=== PATIENT | female | born 1945 | race Caucasian/White ===

== ENCOUNTER 2021-05-30 13:23 | Emergency (ER) | payer MEDICARE, SELFPAY ==
[2021-05-30 13:43] VITALS: BP 144/64; PULSE 89; RESP 18; TEMP 36.9; O2SAT 99
--- NOTE | 2021-05-30 13:45 | ECG_ITS ---
Measurements Intervals [place] Rate: 90 P: 7 VT: 130 QRS: 20 QRSD: 85 T: 16 QT: 348 QTc: 427 Interpretive Statements SINUS RHYTHM BORDERLINE T WAVE ABNORMALITY- INFERIOR LEADS BASELINE ARTIFACT- II, III, AVR, AVL, AVF, V1-V2 BORDERLINE ECG Electronically Signed On 05-30-2021 14:45:09 CONTACT CENTER ANALYST by Hair Nguyen D.O.
--- NOTE | 2021-05-30 13:48 | ED.SOB ---
HPI - SOB/Dyspnea General Chief Complaint: Shortness of Breath/Dyspnea Stated Complaint: Short of Breath Time Seen by Provider: 05/30/21 13:45 Source: patient, RN notes reviewed and old records reviewed Mode of arrival: ambulatory Limitations: no limitations History of Present Illness HPI Narrative: 75 year old female who presents to express care with complaints of intermittent chest pain since last Sunday associated with shortness of breath with pain to chest increased with deep breathing. Patient reports that dyspnea increases with activity and when lying down. She reports that she has been taking nitro without resolution of chest pain but has not taken any today, Patient denies chest pain at present time but reports that her dyspnea seems to have increased today.Patient states history of CAD,angina, PE, CHF, irregular heart beat, pneumonia, COPD, hypertension, TIA,old CVA,asthma and COPD. Patient reports that she lives in [place] and is staying with her daughter at this time has not gotten in contact with her physician.Patient is on Plavix daily. MD elicited complaint: shortness of breath, pain with inspiration and chest pain Pertinent past history: COPD, asthma, congestive heart failure, pneumonia, PE and DVT Onset (ago): day(s) (5) Treatment prior to arrival: nitroglycerin Related Data Home oxygen amount: none Home Medications Medication Instructions Recorded Confirmed amlodipine 05/30/21 atorvastatin 05/30/21 baclofen mg 05/30/21 folic acid 05/30/21 lisinopril 05/30/21 nitroglycerin mg 05/30/21 ropinirole mg 05/30/21 sertraline mg 05/30/21 tramadol mg 05/30/21 trazodone 05/30/21 Allergies Allergy/AdvReac Type Severity Reaction Status Date / Time lorazepam [From Ativan] Allergy Severe Jittery Verified 05/30/21 14:47 Review of Systems Review of Systems: CONSTITUTIONAL: Denies fever, chills, or sweats. EYES: Denies visual changes, redness, or discharge. ENT: Denies rhinorrhea, congestion, sore throat, or otalgia. CARDIOVASCULAR: Positive for chest pain, no palpitations, or edema. RESPIRATORY: Denies cough Positive for dyspnea especially with activity and when lying down GASTROINTESTINAL: Denies abdominal pain, nausea, vomiting, or diarrhea. GENITOURINARY: Denies dysuria or hematuria. SKIN: Denies rash or itching. MUSCULOSKELETAL: Denies back pain, joint pain, or myalgia. NEUROLOGIC: Denies headache, numbness, or weakness. PSYCHIATRIC: Positive for history of anxiety or depression. All systems reviewed & are unremarkable except as noted in HPI and below PMFSH Past Medical History Medical History Afib Anxiety and depression Arthritis Asthma CAD (coronary artery disease) Congestive heart failure COPD (chronic obstructive pulmonary disease) DVT (deep venous thrombosis) Hypertension Lupus Pulmonary embolism Right-sided cerebrovascular accident (CVA) Sleep apnea TIA (transient ischemic attack) Surgical History Surgical History History of cholecystectomy History of hysterectomy History of left hip replacement S/P cervical spinal fusion Family History Family History (Updated 06/01/21 @ 11:11 by Dipti Kilpatrick NP) Sibling Lupus Diabetes mellitus Mother Diabetes mellitus Other Cerebrovascular accident Heart disease Hypertension Social History Social History (Updated 06/01/21 @ 11:02 by Dipti Kilpatrick NP) Smoking status: Never smoker Alcohol intake: current Alcohol use details: rare social Substance use: never Living arrangements: with family Gender identity (if verbalized by the patient): Female Comments At time of signature, agree with nursing past medical, surgical, social and family history. There is no relevant family history pertinent to the presenting complaint Exam Narrative: GENERAL: Well-appearing, well-nourished, and in no ac
--- NOTE | 2021-05-30 14:16 | PC.NURSE ---
05/30/21 AT 1400 [facility] HERE. REPORT GIVEN. PT FAMILY MEMBER HAFSA BROUGHT BACK TO ROOM INFORMED OF TRANSFER. PT STABLE. PT TRANSFERRED WITH EMS TO [facility] ED. IV INTACT. ALL PERSONAL BELONGINGS KEPT WITH PATIENT.
== END 2021-05-30 14:21 | disposition short-term general hospital (02) ==
PROVIDERS: Emergency Provider Registered Nurse
DX: R07.9 Chest pain, unspecified (principal); R06.02 Shortness of breath; I48.91 Unspecified atrial fibrillation; M19.90 Unspecified osteoarthritis, unspecified site; I25.10 Atherosclerotic heart disease of native coronary artery without angina pectoris; J44.9 Chronic obstructive pulmonary disease, unspecified; Z86.711 Personal history of pulmonary embolism; I11.0 Hypertensive heart disease with heart failure; I50.9 Heart failure, unspecified; Z86.73 Personal history of transient ischemic attack (TIA), and cerebral infarction without residual deficits; G47.30 Sleep apnea, unspecified
CPT/HCPCS: 93005; 99215; G0463

== ENCOUNTER 2021-05-30 14:27 | Emergency (ER) | payer MEDICARE, SELFPAY ==
[2021-05-30] VITALS (34 sets, daily range): BP systolic 109–157; BP diastolic 53–89; PULSE 73–86; RESP 12–22; TEMP 36.6–37; O2SAT 97–100
--- NOTE | ~2021-05-30 | CT_ITS ---
EXAMINATION: CTA chest PE protocol DATE: 05/30/2021 19:13 INDICATION: Shortness of breath and elevated d-dimer. TECHNIQUE: Computed tomography (CT) pulmonary angiogram of the chest was performed with 100 mL Omnipa que-350 intravenous contrast. Additional 3D reconstructions utilizing coronal maximum intensity proje ction (MIP) were performed. Automated exposure control and iterative reconstruction technique were em ployed. The dose-length product was 467.91 mGy-cm. COMPARISON: None FINDINGS: Excellent contrast opacification of the pulmonary arteries. There is mild streak artifact from dense contrast in the superior vena cava and right atrium. Mild scattered respiratory motion artifact which mildly decreases sensitivity and specificity in some of the smaller subsegmental pulmonary arteries. There appears be a small central filling defect within the anterior segmental pulmonary artery of th e right upper lobe. No other lesions suspicious for pulmonary emboli identified. Linear discoid atele ctasis/scarring at the bilateral lower lung zones. Couple calcified right lower lobe nodules consiste nt with old granulomatous disease. Mosaic attenuation most prominent in the upper lung zones consiste nt with likely poor inspiratory effort with subsegmental regions of air trapping related to small air way disease. No pneumonia or pulmonary edema. Trace left pleural effusion. Mild cardiomegaly. No left potts deviation of the ventricular septum to suggest right heart strain. Atherosclerotic coronary donald ry calcification. Aortic valve calcification. No pericardial effusion. Thoracic aorta is normal in ca liber with no dissection. No pathologically enlarged thoracic lymphadenopathy. Small sliding-type hia brit hernia. Moderate thoracic spondylosis. Chronic T12 compression fracture. Healing subacute early c hronic left seventh rib fracture. Cholecystectomy clips at the gallbladder fossa. Nonspecific mild sp lenomegaly. A few splenic and hepatic calcification consistent with old granulomatous disease. IMPRESSION: 1. Single likely small pulmonary embolism in the anterior segmental pulmonary artery of the right upp er lobe. Streak artifact considered less likely etiology. 2. Mild cardiomegaly. 3. Chronic mild streaky atelectasis/scarring at the bilateral lung bases. Reviewed, dictated and finalized at location A. RVISING APPRAISER IMPRESSION: 1. Single likely small pulmonary embolism in the anterior segmental pulmonary a rtery of the right upper lobe. Streak artifact considered less likely etiology. 2. Mild cardiomegaly. 3. Chronic mild streaky atelectasis/scarring at the bilateral lung bases.
--- NOTE | ~2021-05-30 | XR_ITS ---
EXAMINATION: XR chest 2V DATE: 05/30/2021 15:32 INDICATION: Intermittent chest pain. Blood clots. TECHNIQUE: PA and lateral views of the chest were obtained. COMPARISON: Chest radiograph dated 04/18/[address] dated 07/19/2011 FINDINGS: Small calcified nodule at the right costophrenic angle consistent with old granulomatous disease. No significant change in scattered mild linear discoid atelectasis/scarring in the bilateral lower lung zones. No pulmonary edema, pleural effusion or pneumothorax. The cardiomediastinal silhouette is norm al. Cholecystectomy clips in the right upper quadrant. Midline sutures in the upper abdomen. Plate-sc rew fixation for lower cervical anterior spinal fusion. Chronic mild compression fracture at the lowe r thoracic spine likely T12. IMPRESSION: 1. Mild streaky atelectasis/scarring in the bilateral lower lung zones. Reviewed, dictated and finalized at location A. ARCH STAFF MEMBER
--- NOTE | 2021-05-30 14:41 | ECG_ITS ---
Measurements Intervals [place] Rate: 81 P: 20 [place]: 136 QRS: 7 QRSD: 92 T: 6 QT: 373 QTc: 433 Interpretive Statements SINUS RHYTHM BORDERLINE T WAVE ABNORMALITY- INFERIOR LEADS BASELINE ARTIFACT- I, II, III, AVR, AVL, AVF, V1-V6 BORDERLINE ECG Electronically Signed On 05-30-2021 14:50:04 WARP KNITTER by Hair Nguyen D.O.
[2021-05-30 15:16] LABS: Basophils Percent Auto 0.3 % (0.2-1.2); Eosinophils Absolute Auto 0.1 K/mm3 (0-0.3); Eosinophils Percent Auto 2.2 % (0-4.4); Hematocrit 29.3 % (37.0-47.0); Hemoglobin 9.2 g/dL (12.0-15.0); Immature Granulocyte Absolute 0.01 K/mm3 (0.00-0.031); Immature Granulocyte Percent A 0.3 % (0-0.5); Lymphocytes Absolute Auto 0.72 K/mm3 (0.9-3.2); Lymphocytes Percent Auto 19.6 % (18.3-44.2); Mean Corpuscular HGB Conc 31.4 g/dl (32-36); Mean Corpuscular Hemoglobin 27.7 pg (26-34); Mean Corpuscular Volume 88.3 fl (80-100); Mean Platelet Volume 10.3 fl (7.4-10.4); Monocytes Absolute Auto 0.3 K/mm3 (0.1-0.6); Monocytes Percent Auto 8.2 % (2.6-8.5); Neutrophils Absolute Auto 2.6 K/mm3 (1.3-6.7); Neutrophils Percent Auto 69.4 % (45.5-73.1); Platelet Count Result 106 k/mm3 (150-375); Red Blood Count 3.32 M/mm3 (4.2-5.4); Red Cell Distribution Width 14.6 % (11.5-14.5); White Blood Count 3.7 K/mm3 (4.5-10.0)
[2021-05-30 15:28] LABS: INR 1.2; Prothrombin Time 14.6 Seconds (11.1-14.7)
[2021-05-30 15:29] LABS: Partial Thromboplastin Time 33.6 SECONDS (22.3-36.8)
[2021-05-30 15:31] LABS: Anion Gap 6 mmol/L (8-16); Blood Urea Nitrogen 28 mg/dL (7-17); Calcium 9.1 mg/dL (8.4-10.2); Carbon Dioxide 27 mmol/L (22-30); Chloride 109 mmol/L (98-107); Estimated CRCL calculation 49 ml/min; Estimated Glomerular Filt Rate > 60; Glucose 100 mg/dL (65-110); Potassium 4.1 mmol/L (3.4-5.0); Sodium 142 mmol/L (137-145)
[2021-05-30 15:43] LABS: Troponin I < 0.012 ng/mL (0.000-0.034)
--- NOTE | 2021-05-30 16:02 | PC.NURSE ---
Called lab to add on D-dimer
[2021-05-30] MEDS: ASPIRIN 81 MG CHEWABLE TABLET 324 MG PO (16:06)
--- NOTE | 2021-05-30 16:08 | PC.NURSE ---
Called lab to add on D-Dimer
--- NOTE | 2021-05-30 16:08 | PC.NURSE ---
Pt received 162 mg in aspirin in ambulance, took execedrine at 11 AM. aware, OK to administer another 162 mg of chewable aspirin
[2021-05-30 16:27] LABS: D Dimer 2.58 ug/mL (<0.48)
[2021-05-30 18:26] LABS: Troponin I < 0.012 ng/mL (0.000-0.034)
--- NOTE | 2021-05-30 19:27 | ED.SOB ---
HPI - SOB/Dyspnea General Chief Complaint: Chest Pain Stated Complaint: CP Time Seen by Provider: 05/30/21 14:29 Source: patient Mode of arrival: ambulatory Limitations: no limitations History of Present Illness HPI Narrative: 75-year-old female Here for shortness of breath She complains of of shortness of breath especially when lying down for a week which is increased for the last 2 to 3 days She has a little bit of exertional dyspnea but it is not as marked as the orthopnea is She also notes some anterior chest discomfort also present for the same amount of time, intermittent, not really exertional, more associated with trying to take a deep breath She does not have fever or a cough No diaphoresis, no nausea, no palpitations, and the pain does not radiate She noted that about 30 years ago she had a DVT She says that for a couple of weeks she has had a little bit of swelling in her legs which reminded her somewhat of that but did tell her doctor about it because she thought he'd just order a bunch of tests Related Data Home Medications Medication Instructions Recorded Confirmed amlodipine 05/30/21 atorvastatin 05/30/21 baclofen mg 05/30/21 folic acid 05/30/21 lisinopril 05/30/21 nitroglycerin mg 05/30/21 ropinirole mg 05/30/21 sertraline mg 05/30/21 tramadol mg 05/30/21 trazodone 05/30/21 Allergies Allergy/AdvReac Type Severity Reaction Status Date / Time lorazepam [From Ativan] Allergy Severe Jittery Verified 05/30/21 14:47 Review of Systems Review of Systems: All systems reviewed & are unremarkable except as noted in HPI and below Constitutional: Constitutional: Reports no additional constitutional complaints, Denies chills, Reports fatigue, Denies fever(s) and Denies headache(s) Eyes: Eyes: Reports no additional eye complaints and Denies change in vision ENT: Denies headache(s) and Denies sore throat Cardiovascular: Cardiovascular: Reports chest pain, Denies radiating jaw, neck or arm pain and Denies dyspnea Respiratory: Respiratory: Denies cough and Reports dyspnea Gastrointestinal: Gastrointestinal: Denies abdominal pain, Denies diarrhea and Denies vomiting Genitourinary: Genitourinary: Denies urinary frequency and Denies dysuria Musculoskeletal: Musculoskeletal: Denies deformity, Denies arthralgias, Denies joint swelling and Denies numbness Integumentary/Breasts: Skin/Breast: Denies rash and Denies wounds Neurologic: Denies headache(s), Denies focal weakness and Denies numbness Psychiatric: Psychiatric: Reports no additional psychiatric complaints Endocrine: Endocrine: Reports no additional endocrine complaints Hematologic/Lymphatic: Hematologic/Lymphatic: Reports no additional hematologic/lymphatic complaints Allergic/Immunologic: Allergic/Immunologic: Reports no additional allergic/immunologic complaints Course Course Emergency Course: She has a small subsegmental single PE with no signs of ischemia hypoxia or strain and is a good candidate for outpatient therapy, she is interested in that, and is started on Eliquis here prior to discharge Vital Signs Vital signs: Vital Signs Pulse Rate 83 05/30/21 14:33 Respiratory Rate 17 05/30/21 14:33 Pulse Oximetry 99 05/30/21 14:33 Temperature 37.0 C 05/30/21 14:42 Pulse Rate 81 05/30/21 20:02 Respiratory Rate 20 05/30/21 20:02 Blood Pressure 109/71 05/30/21 19:46 Pulse Oximetry 100 05/30/21 20:02 MDM - SOB/Dyspnea Medical Records Attestation: I reviewed the patient's medical records. Lab Data Attestation: I reviewed the patient's lab results. Result diagrams: 05/30/21 15:07 05/30/21 15:07 Labs: Lab Results 05/30/21 05/30/21 05/30/21 Range/Units 15:06 15:07 15:07 WBC 3.7 L (4.5-10.0) K/mm3 RBC 3.32 L (4.2-5.4) M/mm3 Hgb 9.2 L (12.0-15.0) g/dL Hct 29.3 L (37.0-47.0) % MCV 88.3 (80-100) fl MCH 27.7 (26-34) pg MCHC 31.
[2021-05-30] MEDS: APIXABAN 5 MG TABLET 10 MG PO (20:53)
== END 2021-05-30 21:07 | disposition home or self-care (01) ==
PROVIDERS: Emergency Provider Emergency Medicine
DX: I26.99 Other pulmonary embolism without acute cor pulmonale (principal); I51.7 Cardiomegaly; R94.31 Abnormal electrocardiogram [ECG] [EKG]
CPT/HCPCS: 36415; 71046; 71275; 80048; 84484; 85025; 85380; 85610; 85730; 93005; 99284; A9270; Q9967

== ENCOUNTER 2021-12-02 14:11 | Outpatient (CLI) | payer MEDICARE, SELFPAY ==
--- NOTE | ~2021-12-02 | US_ITS ---
EXAMINATION:US venous doppler LE BI INDICATION:Lower extremity pain TECHNIQUE: Multiple grayscale, color flow and Doppler images of the right and left lower extremity de ep venous systems were obtained and reviewed. COMPARISON:Ultrasound dated 01/05/2009 FINDINGS: The common femoral, superficial femoral and popliteal veins demonstrate normal respiratory variation, augmentation and compressibility. Color flow is also seen within the posterior tibial, pe roneal, greater saphenous and profunda veins. IMPRESSION: 1: No lower extremity deep venous thrombosis. Reviewed, dictated and finalized at location B.
== END 2021-12-02 14:12 | disposition home or self-care (01) ==
DX: N18.30 Chronic kidney disease, stage 3 unspecified (principal); I82.493 Acute embolism and thrombosis of other specified deep vein of lower extremity, bilateral; I82.409 Acute embolism and thrombosis of unspecified deep veins of unspecified lower extremity
CPT/HCPCS: 36415; 85303; 93970

== ENCOUNTER 2024-01-26 19:52 | Emergency (ER) | payer MEDICARE, SELFPAY ==
[2024-01-26] VITALS (8 sets, daily range): BP systolic 146–179; BP diastolic 62–97; PULSE 71–94; RESP 12–24; O2SAT 93–97
--- NOTE | 2024-01-26 19:58 | ECG_ITS ---
Test Date: 2024-01-26 20:04:21 Measurements Intervals [place] Rate: 91 P: 0 CT: 153 QRS: -2 QRSD: 92 T: 18 QT: 367 QTc: 452 Interpretive Statements SINUS RHYTHM BASELINE ARTIFACT- III, AVF NORMAL ECG No previous ECG available for comparison Electronically Signed On 01-26-2024 21:00:58 CDT by Hair Nguyen D.O.
--- NOTE | 2024-01-26 20:12 | ED.CHESTPAIN ---
HPI - Chest Pain General Chief Complaint: Chest Pain Stated Complaint: chest pain Time Seen by Provider: 01/26/24 19:57 History of Present Illness HPI narrative: 78-year-old female presents to the emergency department for evaluation for a 10 minutes episode of chest pain. Patient states she was at an outdoor event when she became overheated and started to have some warm sensation with some associated chest pain. Patient did take a nitro and her symptoms improved. Upon arrival emergency department patient states she is having no pain discomfort and does feel tired but denies any discomfort. Related Data Home Medications Medication Instructions Recorded Confirmed amlodipine 2.5 mg tablet 05/30/21 atorvastatin 40 mg tablet 05/30/21 baclofen 10 mg tablet mg 05/30/21 folic acid 1 mg tablet 05/30/21 lisinopril 10 mg tablet 05/30/21 nitroglycerin 0.4 mg sublingual mg 05/30/21 tablet ropinirole 1 mg tablet mg 05/30/21 sertraline 100 mg tablet mg 05/30/21 tramadol 50 mg tablet mg 05/30/21 trazodone 50 mg tablet 05/30/21 Allergies Allergy/AdvReac Type Severity Reaction Status Date / Time lorazepam [From Ativan] Allergy Severe Jittery Verified 05/30/21 14:47 Review of Systems Review of Systems: All systems reviewed & are unremarkable except as noted in HPI and below PMFSH Past Medical History Medical History Afib Anxiety and depression Arthritis Asthma CAD (coronary artery disease) Congestive heart failure COPD (chronic obstructive pulmonary disease) DVT (deep venous thrombosis) Hypertension Lupus Pulmonary embolism Right-sided cerebrovascular accident (CVA) Sleep apnea TIA (transient ischemic attack) Surgical History Surgical History History of cholecystectomy History of hysterectomy History of left hip replacement S/P cervical spinal fusion Family History Family History (Updated 06/01/21 @ 11:11 by Dipti Kilpatrick NP) Sibling Lupus Diabetes mellitus Mother Diabetes mellitus Other Cerebrovascular accident Heart disease Hypertension Social History Social History (Updated 06/01/21 @ 11:02 by Dipti Kilpatrick NP) Smoking status: Never smoker Alcohol intake: current Alcohol use details: rare social Substance use: never Living arrangements: with family Gender identity (if verbalized by the patient): Female Exam Narrative: APPEARANCE: Well appearing, no pain, no distress, well-nourished. HEAD: normocephalic, atraumatic. EYES: PERRLA/EOMI, conjunctivae clear. NOSE: Normal no drainage EARS:TMS clear with good light reflex. THROAT: Pharynx clear, no exudate. NECK: Supple. No adenopathy, no masses. RESPIRATORY: Airway patent, respirations nonlabored. Clear to auscultation bilaterally, no rales, rhonchi, wheezing. CARDIOVASCULAR: Regular rate and rhythm without murmurs rubs or gallops. ABDOMINAL: Soft, nontender, nondistended, normal bowel sounds MUSCULOSKELETAL: Moves all extremities. Strength/ROM intact, No edema, No calf tenderness. NEURO: Alert. Cranial nerves II through XII intact. Good gait. Good coordination SKIN: Warm, dry. Normal Color Course Course Emergency Course: Patient family updated the results of the workup. Patient was comfortable the plan discharge and close follow-up. Vital Signs Vital signs: Vital Signs Pulse Rate 94 01/26/24 19:58 Respiratory Rate 17 01/26/24 19:58 Blood Pressure 166/80 H 01/26/24 19:58 Pulse Oximetry 95 01/26/24 19:58 Pulse Rate 75 01/26/24 23:59 Respiratory Rate 12 01/26/24 23:59 Blood Pressure 179/97 H 01/26/24 23:59 Pulse Oximetry 94 01/26/24 23:59 Oxygen Delivery Room Air 01/26/24 20:03 MDM - Chest Pain MDM Narrative Medical decision making narrative: 78-year-old female present to the emergency department for evaluation of chest pain. Dhruv
[2024-01-26 20:52] LABS: Basophils Percent Auto 0.7 % (0.2-1.2); Eosinophils Absolute Auto 0.1 K/mm3 (0-0.3); Eosinophils Percent Auto 3.3 % (0-4.4); Hematocrit 28.8 % (37.0-47.0); Hemoglobin 8.8 g/dL (12.0-15.0); Immature Granulocyte Absolute 0.01 K/mm3 (0.00-0.031); Immature Granulocyte Percent A 0.3 % (0-0.5); Lymphocytes Absolute Auto 0.75 K/mm3 (0.9-3.2); Lymphocytes Percent Auto 24.6 % (18.3-44.2); Mean Corpuscular HGB Conc 30.6 g/dl (32-36); Mean Corpuscular Hemoglobin 25.7 pg (26-34); Mean Corpuscular Volume 84.2 fl (80-100); Mean Platelet Volume 10.4 fl (7.4-10.4); Monocytes Absolute Auto 0.3 K/mm3 (0.1-0.6); Monocytes Percent Auto 10.5 % (2.6-8.5); Neutrophils Absolute Auto 1.9 K/mm3 (1.3-6.7); Neutrophils Percent Auto 60.6 % (45.5-73.1); Platelet Count Result 123 k/mm3 (150-375); Red Blood Count 3.42 M/mm3 (4.2-5.4); Red Cell Distribution Width 17.2 % (11.5-14.5); White Blood Count 3.1 K/mm3 (4.5-10.0)
[2024-01-26 21:02] LABS: Alanine Aminotransferase 16 U/L (6-35); Albumin Level 3.8 g/dL (3.5-5.1); Alkaline Phosphatase 71 U/L (38-126); Anion Gap 7 mmol/L (4-12); Aspartate Amino Transferase 31 U/L (14-36); Bilirubin,Total 0.4 mg/dL (0.2-1.3); Blood Urea Nitrogen 22 mg/dL (7-17); Calcium 8.6 mg/dL (8.4-10.2); Carbon Dioxide 27 mmol/L (22-30); Chloride 109 mmol/L (98-107); Estimated CRCL calculation 53 ml/min; Estimated Glomerular Filt Rate > 60; Glucose 101 mg/dL (65-110); Potassium 3.9 mmol/L (3.4-5.0); Sodium 143 mmol/L (137-145)
[2024-01-26 21:14] LABS: Troponin I < 0.012 ng/mL (0.000-0.034)
--- NOTE | 2024-01-26 22:37 | PC.NURSE ---
patient ambulated to the bathroom with no issue, patient had a steady gait and maintained balance appropriately
--- NOTE | 2024-01-26 22:58 | ECG_ITS ---
Test Date: 2024-01-26 23:03:56 Measurements Intervals [place] Rate: 71 P: 1 [place]: 161 QRS: 4 QRSD: 100 T: 11 QT: 410 QTc: 448 Interpretive Statements SINUS RHYTHM BASELINE ARTIFACT- II, III, AVF NORMAL ECG Compared to ECG 01/26/2024 20:04:21 No significant changes Electronically Signed On 01-27-2024 07:28:38 CDT by Hair Nguyen D.O.
[2024-01-26 23:36] LABS: Troponin I < 0.012 ng/mL (0.000-0.034)
== END 2024-01-26 23:59 | disposition home or self-care (01) ==
PROVIDERS: Emergency Provider Emergency Medicine
DX: T67.8XXA Other effects of heat and light, initial encounter (principal); R07.9 Chest pain, unspecified; I48.91 Unspecified atrial fibrillation; I50.9 Heart failure, unspecified; I11.0 Hypertensive heart disease with heart failure; I25.10 Atherosclerotic heart disease of native coronary artery without angina pectoris; J44.9 Chronic obstructive pulmonary disease, unspecified; M32.9 Systemic lupus erythematosus, unspecified; G47.30 Sleep apnea, unspecified; F41.9 Anxiety disorder, unspecified; F32.A Depression, unspecified; Z96.642 Presence of left artificial hip joint; Z98.1 Arthrodesis status; Z86.73 Personal history of transient ischemic attack (TIA), and cerebral infarction without residual deficits; Z86.718 Personal history of other venous thrombosis and embolism; Z86.711 Personal history of pulmonary embolism; Z90.49 Acquired absence of other specified parts of digestive tract; Z90.710 Acquired absence of both cervix and uterus; Z79.899 Other long term (current) drug therapy; X30.XXXA Exposure to excessive natural heat, initial encounter
CPT/HCPCS: 36415; 80053; 84484; 85025; 93005; 99284